=== PATIENT | female | born 1995 ===

== ENCOUNTER → 2020-03-24 | Outpatient (REF) | payer OTHER ==
[2020-03-24 21:27] LABS: CHLAMYDIA DNA AMPLIFICATION NEGATIVE (NEGATIVE); GC DNA AMPLIFICATION POSITIVE (NEGATIVE)
== END ==
LOC: M WUC 19:21
PROVIDERS: ATTEND Physician Assistant
DX: Z11.3 Encounter for screening for infections with a predominantly sexual mode of transmission (principal)